=== PATIENT | male | born 1990 | race Two or more races ===

== ENCOUNTER 2024-12-06 19:34 | Emergency (ER) | payer BC, OTHER ==
[~2024-12-06] VITALS: Ht 177.8 cm; Wt 62.8 kg
--- NOTE | 2024-12-06 20:32 | DVH ---
CLINICAL INDICATION: hand injury TECHNIQUE: 3 radiographic views of the right hand were obtained. Comparison: None FINDINGS/IMPRESSION: Mildly displaced transverse fractures proximal 3rd of the 2nd 3rd and 4th metacarpals The visualized joint space is well maintained. The alignment is anatomical. There is no radiopaque foreign body.
[2024-12-06] MEDS: OXYCODONE W/ ACETAMINOPHEN 5/325MG TABLET PO ONE (22:40)
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
[2024-12-07] MEDS ORDERED: ceFAZolin 2 GM/D5W50ml 50 ML IV ONE
[2024-12-07] MEDS: ceFAZolin 1GM/50ML 50 ML IV ONE ×2 (00:54)
[2024-12-07] MEDS: MORPHINE SULFATE INJ 2 MG/ml SYRG IV ONE ×2 (02:49→06:56)
[2024-12-07 03:57] VITALS: PULSE 82; RESP 16; O2SAT 96
[2024-12-07 06:56] VITALS: BP 125/79; PULSE 80; RESP 16; TEMP 98.1; O2SAT 98
== END 2024-12-07 07:16 | disposition short-term general hospital (02) ==
LOC: ER 19:34
DX: S62.91XB Unspecified fracture of right hand, initial encounter for open fracture (principal); S62.314A Displaced fracture of base of fourth metacarpal bone, right hand, initial encounter for closed fracture; V89.2XXA Person injured in unspecified motor-vehicle accident, traffic, initial encounter; Y93.I9 Activity, other involving external motion; Y92.488 Other paved roadways as the place of occurrence of the external cause; Y99.8 Other external cause status
CPT/HCPCS: 73130; 96365; 96375; 99285; J0690; J2270